=== PATIENT | male | born 1995 | race African-American/Black ===

== ENCOUNTER 2022-05-22 21:56 | Emergency (ER) | payer SELFPAY ==
[~2022-05-22] VITALS: Ht 172.7 cm; Wt 77.3 kg
[~2022-05-22 21:56] MED LIST: ALBU17AE3 IH; AMOX-358 PO; AZIT250T PO; CEFD300C3 PO; SULF-222 PO
--- NOTE | 2022-05-22 22:17 | ED EENT ---
History of Present Illness General Chief Complaint: Oral/Throat Problems Stated Complaint: BLEEDING GUMS/PAIN Nursing Triage Note: Pt arrival to er with complaint of bleeding gums x2 weeks. Pt states that it doesn't bleed constantly, but it starting to bleed more often. Pt states that both top and bottom gums hurt. Pt has scheduled upcoming dentist appointment. Source: patient History of Present Illness Date Seen by Provider: May 22, 2022 Time Seen by Provider: 22:09 Initial Comments PT ARRIVES VIA POV FROM HOME C/O BLEEDING TO HIS GUMS FOR OVER 2 WEEKS BLEEDING IS DIFFUSE TO BOTH UPPER AND LOWER GUMS NOW GUMS ARE STARTING TO BECOME SORE AND SWELL NO PROBLEMS DRINKING LIQUIDS, HAS SOME DISCOMFORT WITH CHEWING NO PROBLEMS HANDLING SECRETIONS NO FEVER NO URI SYMPTOMS OR SORE THROAT NO RECENT ILLNESS NO OTHER SYMPTOMS PT HAS ASTHMA,BUT HAS NOT BEEN ON STEROIDS RECENTLY OR USED A STEROID INHALER, OR ANY INHALER RECENTLY PT DOES SMOKE CIGARETTES DAILY DOES NOT TAKE ASPIRIN OR ANY BLOOD THINNERS DOES NOT TAKE ANY MEDICATIONS ON A DAILY BASIS DOES NOT TAKE OVER THE COUNTER NSAIDS OFTEN NO HISTORY OF SIMILAR DOES NOT ROUTINELY GO TO THE DENTIST, BUT DID MAKE AN APPOINTMENT AT [facility] FOR NEXT TUESDAY PCP: JERONIMO, BUT RARELY GOES THERE Allergies and Home Medications Allergies Coded Allergies: No Known Drug Allergies (Unverified , 10/15/11) Patient Home Medication List Home Medication List Reviewed: Yes Amoxicillin (Amoxicillin) 875 Mg Tablet, 875 MG PO BID Prescribed by: SOHAN SHANNON on 05/22/222258 Amoxicillin/Potassium Clav (Augmentin 875-125 Tablet) 1 Each Tablet, 1 EACH PO BID Prescribed by: AYAN RAO on 02/22/16 141 Cefdinir (Cefdinir) 300 Mg Capsule, 300 MG PO BID Prescribed by: AFUA SETH on 03/04/162028 Chlorhexidine Gluconate (Peridex) 0.12 % Mouthwash, 473 ML MM DAILY Prescribed by: SOHAN SHANNON on 05/22/222258 Sulfamethoxazole/Trimethoprim (Sulfamethoxazole-Tmp Ds Tablet) 1 Each Tablet, 1 EACH PO BID Prescribed by: AYAN RAO on 02/22/16 141 Review of Systems Review of Systems Constitutional: no symptoms reported Eyes: No Symptoms Reported Ears: No Symptoms Reported Nose: no symptoms reported Mouth: see HPI Throat: no symptoms reported Respiratory: no symptoms reported Cardiovascular: no symptoms reported Gastrointestinal: no symptoms reported Musculoskeletal: no symptoms reported Skin: no symptoms reported Neurological: No Symptoms Reported Hematologic/Lymphatic: See HPI Immunological/Allergic: no symptoms reported Past Nhjajpb-Fbsvam-Yphdja Hx Patient Social History Tobacco Use?: Yes Tobacco type used: Cigarettes Smoking Status: Current Everyday Smoker Use of E-Cig and/or Vaping dev: No Substance use?: No Alcohol Use?: No Pt feels they are or have been: No Immunizations Up To Date Tetanus Booster (TDap): Less than 5yrs Influenza Vaccine Up-to-Date: No; Not Current Seasonal Allergies Seasonal Allergies: No Past Medical History Surgeries: No Respiratory: Yes Asthma, Pneumonia Cardiac: No Neurological: No Reproductive Disorders: No Genitourinary: No Gastrointestinal: No Musculoskeletal: No Endocrine: No HEENT: No Cancer: No Psychosocial: No Integumentary: No Blood Disorders: No Family Medical History No Pertinent Family Hx Physical Exam Vital Signs Vital Signs - First Documented 05/22/22 22:09 Temp 37.0 Pulse 83 Resp 16 B/P (MAP) 133/88 (103) Pulse Ox 99 O2 Delivery Room Air Height, Weight, BMI Height: 5'8" Weight: 165lbs. oz. 74.061383bm; 25.00 BMI Method:Stated General Appearance: WD/WN, no apparent distress Eyes: bilateral eye normal inspection, bilateral eye PERRL, bilateral eye EOMI Nose: normal inspection Mouth/Throat: pharynx normal; No dental tenderness, No excessive drooling, No mandibular swelling, No maxillary swelling; other (PT HAS MULTIPLE AREAS OF MILD OOZING OF BLOOD FROM GUM LINE AROUND MULITPLE TEETH--BOTH UPPER AND LOWER GUMS. . POOR DENTITION AND DENTAL HYGIENE. NO OBVIOUS ERYTHEMA OR PALENESS TO GUMS. NO ULCERS/LESIONS, ETC. NO SLOUGHING OF MUCOSA. NO SIGNIFICANT SWELLING TO GUMS. ) Neck: normal inspection Cardiovascular: regular rate, rhythm, no murmur Respiratory: normal breath sounds Gastrointestinal: non tender, soft Neurologic/Psychiatric: rivet tosser II-XII nml as tested, no motor/sensory deficits, alert, normal mood/affect, oriented x 3 Skin: normal color (PT IS BLACK), warm/dry; No rash Progress/Results/Core Measures Results/Orders Lab Results Laboratory Tests Test 05/22/22 22:22 Range/Units White Blood Count 7.7 4.3-11.0 10^3/uL Red Blood Count 5.59 H 4.30-5.52 10^6/uL Hemoglobin 14.0 13.3-17.7 g/dL Hematocrit 45 40-54 % Mean Corpuscular Volume 80 80-99 fL Mean Corpuscular Hemoglobin 25 25-34 pg Mean Corpuscular Hemoglobin Concent 31 L 32-36 g/dL Red Cell Distribution Width 13.2 10.0-14.5 % Platelet Count 286 130-400 10^3/uL Mean Platelet Volume 10.2 9.0-12.2 fL Immature Granulocyte % (Auto) 1 % Neutrophils (%) (Auto) 48 42-75 % Lymphocytes (%) (Auto) 37 12-44 % Monocytes (%) (Auto) 10 0-12 % Eosinophils (%) (Auto) 3 0-10 % Basophils (%) (Auto) 1 0-10 % Neutrophils # (Auto) 3.7 1.8-7.8 10^3/uL Lymphocytes # (Auto) 2.9 1.0-4.0 10^3/uL Monocytes # (Auto) 0.8 0.0-1.0 10^3/uL Eosinophils # (Auto) 0.3 0.0-0.3 10^3/uL Basophils # (Auto) 0.1 0.0-0.1 10^3/uL Immature Granulocyte # (Auto) 0.0 0.0-0.1 10^3/uL Prothrombin Time 14.9 H 12.2-14.7 SEC INR Comment 1.1 0.8-1.4 Activated Partial Thromboplast Time 40 H 24-35 SEC Sodium Level 139 135-145 MMOL/L Potassium Level 3.9 3.6-5.0 MMOL/L Chloride Level 105 98-107 MMOL/L Carbon Dioxide Level 22 21-32 MMOL/L Anion Gap 12 5-14 MMOL/L Blood Urea Nitrogen 16 7-18 MG/DL Creatinine 1.01 0.60-1.30 MG/DL Estimat Glomerular Filtration Rate 104 BUN/Creatinine Ratio 16 Glucose Level 85 70-105 MG/DL Calcium Level 9.5 8.5-10.1 MG/DL Corrected Calcium 9.3 8.5-10.1 MG/DL Total Bilirubin 1.3 H 0.1-1.0 MG/DL Aspartate Amino Transf (AST/SGOT) 21 5-34 U/L Alanine Aminotransferase (ALT/SGPT) 21 0-55 U/L Alkaline Phosphatase 53 40-136 U/L Total Protein 7.6 6.4-8.2 GM/DL Albumin 4.2 3.2-4.5 GM/DL My Orders Orders - SOHAN SHANNON DO Cbc With Automated Diff (05/22/22 22:15) Comprehensive Metabolic Panel (05/22/22 22:15) Protime With Inr (05/22/22 22:15) Partial Thromboplastin Time (05/22/22 22:15) Amoxicillin Capsule (Polymox Capsule) (05/22/22 22:51) Vital Signs/I&O 05/22/22 05/22/22 22:09 23:05 Temp 37.0 37.0 Pulse 83 83 Resp 16 16 B/P (MAP) 133/88 (103) 133/88 Pulse Ox 99 99 O2 Delivery Room Air Room Air Blood Pressure Mean: 103 Departure Impression Primary Impression: Gingivitis Disposition: 01 HOME, SELF-CARE Condition: Stable Departure-Patient Inst. Decision time for Depature: 22:57 Referrals: [facility] [place] Instructions: Gingivitis (DC) Add. Discharge Instructions: TYLENOL NEEDED FOR PAIN USE MOUTH RINSE PRESCRIBED AND TAKE ANTIBIOTICS PRESCRIBED START TAKING A MULTIVITAMIN EVERY DAY, AND TAKE EXTRA VITAMIN C EVERY DAY KEEP YOUR APPOINTMENT WITH THE DENTIST THIS WEEK All discharge instructions reviewed with patient and/or family. Voiced understanding. Scripts Chlorhexidine Gluconate (Peridex) 0.12 % Mouthwash 473 ML MM DAILY, #1 EA Prov: SOHAN SHANNON DO 05/22/22 Amoxicillin (Amoxicillin) 875 Mg Tablet 875 MG PO BID, #20 TAB Prov: SOHAN SHANNON DO 05/22/22 SOHAN SHANNON DO May 22, 2022 22:17
[2022-05-22 22:30] LABS: BASOPHILS # (AUTO) 0.1 10^3/uL (0.0-0.1); BASOPHILS % (AUTO) 1 % (0-10); EOSINOPHILS # (AUTO) 0.3 10^3/uL (0.0-0.3); EOSINOPHILS % (AUTO) 3 % (0-10); HEMATOCRIT 45 % (40-54); LYMPHOCYTES # (AUTO) 2.9 10^3/uL (1.0-4.0); LYMPHOCYTES % (AUTO) 37 % (12-44); MEAN CORPUSCULAR HEMOGLOBIN 25 pg (25-34); MEAN CORPUSCULAR HGB CONC 31 g/dL (32-36); MEAN CORPUSCULAR VOLUME 80 fL (80-99); MEAN PLATELET VOLUME 10.2 fL (9.0-12.2); MONOCYTES # (AUTO) 0.8 10^3/uL (0.0-1.0); MONOCYTES % (AUTO) 10 % (0-12); NEUTROPHILS # (AUTO) 3.7 10^3/uL (1.8-7.8); NEUTROPHILS % (AUTO) 48 % (42-75); PLATELET COUNT 286 10^3/uL (130-400); WHITE BLOOD COUNT 7.7 10^3/uL (4.3-11.0)
[2022-05-22 22:40] LABS: ALBUMIN 4.2 GM/DL (3.2-4.5); POTASSIUM 3.9 MMOL/L (3.6-5.0)
[2022-05-22 22:42] LABS: CALCIUM 9.5 MG/DL (8.5-10.1)
[2022-05-22 22:43] LABS: TOTAL PROTEIN 7.6 GM/DL (6.4-8.2)
[2022-05-22 22:45] LABS: BILIRUBIN,TOTAL 1.3 MG/DL (0.1-1.0)
[2022-05-22 22:47] LABS: CREATININE SERUM 1.01 MG/DL (0.60-1.30)
[2022-05-22 22:49] LABS: INR 1.1 (0.8-1.4); PROTHROMBIN TIME PATIENT 14.9 SEC (12.2-14.7)
[2022-05-22] MEDS ORDERED: AMOXICILLIN 500 MG (POLYMOX) CAP PO STA (22:51)
[2022-05-22] MEDS ORDERED: AMOX875T2 PO (22:59)
[2022-05-22] MEDS ORDERED: CHLO473M4 MM (22:59)
[2022-05-22 23:05] VITALS: BP 133/88
== END 2022-05-22 23:06 | disposition home or self-care (01) ==
LOC: EDUNIT# 21:56 → ER 21:57
DX: K05.10 Chronic gingivitis, plaque induced (principal); F17.210 Nicotine dependence, cigarettes, uncomplicated
CPT/HCPCS: 36415; 80053; 85025; 85610; 85730; 99283